=== PATIENT | female | born 1935 | race Hispanic/Latino ===

== ENCOUNTER 2021-01-28 10:59 | Emergency (ER) | payer MEDICARE, OTHER ==
[2021-01-28 11:40] VITALS: BP 128/80
[2021-01-28] MEDS ORDERED: ACETAMINOPHEN 325 MG TAB PO ONE (12:10)
--- NOTE | 2021-01-28 12:15 | Event Note ---
ED Screening Note Date of service: 01/28/21 Time: 12:13 ED Screening Note: 85 yr old female with hx of Afib, and chronic back pain presents to ED with c/o worsening thoracic and lumbar pain after laying on floor for 2.5hrs. Pt states she was on couch. She was afraid to use her new walker to stand because she though it would collapse with her body weight and so she crawled to bedroom but could not get up and ended up laying on floor for 2.5 hrs waiting for ambulance This initial assessment/diagnostic orders/clinical plan/treatment(s) is/are subject to change based on patients health status, clinical progression and re- assessment by fellow clinical providers in the ED. Further treatment and workup at subsequent clinical providers discretion. Patient/guardian urged not to elope from the ED as their condition may be serious if not clinically assessed and managed. Initial orders include: Labs
[2021-01-28 12:56] LABS: Basophils # (Auto) 0.1 K/mm3 (0.0-0.1); Basophils % (Auto) 0.7 % (0.0-1.8); Eosinophils # (Auto) 0.1 K/mm3 (0.0-0.4); Eosinophils % (Auto) 0.6 % (0.0-4.3); Hemoglobin 14.1 gm/dl (10.1-14.3); Lymphocytes # (Auto) 2.5 K/mm3 (1.2-5.4); Lymphocytes % (Auto) 21.4 % (13.4-35.0); Mean Corpuscular HGB Conc 34 % (30-34); Mean Corpuscular Volume 95 fl (79-97); Monocytes # (Auto) 0.6 K/mm3 (0.0-0.8); Monocytes % (Auto) 4.9 % (0.0-7.3); Platelet Count 241 K/mm3 (140-440)
[2021-01-28 13:19] LABS: Alanine Aminotransferase 10 units/L (7-56); Albumin 3.8 g/dL (3.9-5); Blood Urea Nitrogen 23 mg/dL (7-17); Hemolysis Index 10
[2021-01-28 13:22] LABS: BUN/Creatinine Ratio 46
== END 2021-01-28 13:00 | disposition left against medical advice (07) ==
LOC: ED 10:59
DX: M54.5 Low back pain (principal); Z53.21 Procedure and treatment not carried out due to patient leaving prior to being seen by health care provider
CPT/HCPCS: 36415; 80053; 82550; 85025